=== PATIENT | female | born 1995 | race Caucasian/White ===

== ENCOUNTER 2017-01-28 21:11 | Emergency (ER) | payer OTHER ==
[2017-01-28 23:05] VITALS: BP 124/79
== END 2017-01-28 23:05 | disposition home or self-care (01) ==
LOC: ED 21:11
DX: S93.402A Sprain of unspecified ligament of left ankle, initial encounter (principal); X50.1XXA Overexertion from prolonged static or awkward postures, initial encounter; Y93.89 Activity, other specified; Y99.8 Other external cause status; Y92.89 Other specified places as the place of occurrence of the external cause